=== PATIENT | male | born 1990 | race Caucasian/White ===

== ENCOUNTER 2017-08-25 15:32 | Emergency (ER) | payer MEDICAID ==
[2017-08-25 16:11] LABS: ADD MAN DIFF? NO
[2017-08-25 16:15] LABS: BASOPHILS % 0.4 % (0.0-2.0); EOSINOPHILS # 0.1 10^3/ul (0.0-0.5); HEMATOCRIT 45.8 % (42.0-52.0); HEMOGLOBIN 14.7 g/dl (14.0-18.0); LYMPHOCYTES # 1.5 10^3/ul (0.8-2.9); LYMPHOCYTES % 14.4 % (15.0-51.0); MEAN CORPUSCULAR HEMOGLOBIN 29.5 pg (29.0-33.0); MEAN CORPUSCULAR HGB CONC 32.1 g/dl (32.0-37.0); MEAN PLATELET VOLUME 10.3 fl (7.4-10.4); MONOCYTE # 0.7 10^3/ul (0.3-0.9); MONOCYTES % 7.1 % (0.0-11.0); NEUTROPHILS % 76.7 % (39.0-77.0); PLATELET COUNT 137 10^3/UL (140-415); RED BLOOD COUNT 4.98 10^6/ul (4.70-6.10); RED CELL DISTRIBUTION WIDTH 15.5 % (11.5-14.5)
[2017-08-25 16:15] LABS: WHITE BLOOD COUNT 10.4 10^3/ul (4.8-10.8)
[2017-08-25] MEDS: SOD CHLORIDE 0.9% 250 ML IV (16:16)
[2017-08-25] MEDS: ONDANSETRON 4 MG INJ IV (16:16)
[2017-08-25] MEDS: HYDROmorphONE 1 MG/ML SYG IV (16:16)
[2017-08-25 16:36] LABS: ALANINE AMINOTRANSFERASE 17 IU/L (13-69); ALBUMIN 3.4 g/dl (3.3-4.9); ALBUMIN/GLOBULIN RATIO 1.17; ALKALINE PHOSPHATASE 77 IU/L (42-121); ANION GAP 23 (8-16); ASPARTATE AMINO TRANSFERASE 19 IU/L (15-46); BILIRUBIN,INDIRECT 0.4 mg/dl (0-1.1); BILIRUBIN,TOTAL 0.4 mg/dl (0.2-1.3); BLOOD UREA NITROGEN 71 mg/dl (7-20); CALCIUM 7.7 mg/dl (8.4-10.2); CARBON DIOXIDE 27 mmol/L (21-31); CHLORIDE 96 mmol/L (97-110); CREATININE 9.21 mg/dl (0.61-1.24); GLUCOSE 121 mg/dl (70-220); LIPASE 346 U/L (23-300); POTASSIUM 4.8 mmol/L (3.5-5.1); SODIUM 141 mmol/L (135-144); TOTAL PROTEIN 6.3 g/dl (6.1-8.1)
[2017-08-25 16:47] LABS: TROPONIN-I 0.057 ng/ml (0.000-0.120)
[2017-08-25] MEDS: METOCLOPRAMIDE 10 MG INJ IV (17:18)
[2017-08-25] MEDS: DIPHENHYDRAMINE 50 MG INJ IV (17:19)
[2017-08-25] MEDS: HYDROmorphONE 0.5 MG/0.5 ML SYG IV (17:23)
[2017-08-25] MEDS: SOD CHLORIDE 0.9% 1,000 ML IV (17:23)
[2017-08-25] MEDS: DIATR MEGLU/DIATRIZOATE SODIUM 120 ML BTL PO (20:30)
[2017-08-25] MEDS: BARIUM SULF 2% 450 ML BTL (BERRY SMOOTHIE) PO (20:43)
[2017-08-25] MEDS: hydrALAzine 20 MG INJ IV (23:14)
== END 2017-08-26 | disposition home or self-care (01) ==
LOC: E/R 08-26
DX: R10.84 Generalized abdominal pain (principal); R11.2 Nausea with vomiting, unspecified; D69.6 Thrombocytopenia, unspecified; I12.0 Hypertensive chronic kidney disease with stage 5 chronic kidney disease or end stage renal disease; N18.6 End stage renal disease; R40.2142 Coma scale, eyes open, spontaneous, at arrival to emergency department; R40.2252 Coma scale, best verbal response, oriented, at arrival to emergency department; R40.2362 Coma scale, best motor response, obeys commands, at arrival to emergency department; Z99.2 Dependence on renal dialysis
CPT/HCPCS: 36415; 71045; 74176; 80053; 83690; 84484; 85025; 93005; 96374; 96375; 96376; 99285-25

== ENCOUNTER 2017-12-24 11:42 | Emergency (ER) | payer OTHER ==
[2017-12-24] MEDS: LEVETIRACETAM 500 MG TAB PO (12:19)
[2017-12-24] MEDS: ONDANSETRON 4 MG INJ IM (12:38)
== END 2017-12-24 13:13 | disposition home or self-care (01) ==
LOC: E/R 11:42
DX: R56.9 Unspecified convulsions (principal); N18.6 End stage renal disease; S00.83XA Contusion of other part of head, initial encounter; I12.0 Hypertensive chronic kidney disease with stage 5 chronic kidney disease or end stage renal disease; X58.XXXA Exposure to other specified factors, initial encounter; Z91.14 Patient's other noncompliance with medication regimen
CPT/HCPCS: 70450; 93005; 96372; 99285-25